=== PATIENT | male | born 1955 | race Caucasian/White ===

== ENCOUNTER → 2016-06-01 | Outpatient (CLI) | payer MEDICARE, MEDICAID | LOC: WI 12:32 | PROVIDERS: ATTEND Physician Assistant | DX: R22.9 Localized swelling, mass and lump, unspecified (principal) | CPT/HCPCS: 76642 ==

== ENCOUNTER 2018-07-31 22:30 | Observation (INO) | payer MEDICARE, MEDICAID ==
[2018-07-31] MEDS ORDERED: PREDNISONE 20 MG TABLET PO ONE (22:42)
[2018-07-31] MEDS ORDERED: IPRATROPIUM/ALBUTEROL 0.5-2.5 MG/3 ML AMPUL NEB ONE (22:42)
--- NOTE | 2018-07-31 22:46 | ER Document Report ---
ED General - General Chief Complaint: Shortness Of Breath Stated Complaint: SHORTNESS OF BREATH Time Seen by Provider: 07/31/18 22:42 Primary Care Provider: NABEEL WHATLEY PA-C [PHYSICIAN ASSISTANT BOILER OPERATOR] - Follow up as needed Notes: Patient is a pleasant 63-year-old male with a history of COPD who continues to smoke presents with complaint of difficulty breathing. He says breathing has been worsening over last several days and he ran out of his inhaler 2 days ago and became much worse tonight. No fevers. No vomiting. No diarrhea. No chest pain. Patient received a DuoNeb treatments and Solu-Medrol in the ambulance and says he as if he is improving already. He says he still has some cough and wheezing but is no longer working hard to breathe. He denies any chest pain. No other complaints at this time. TRAVEL OUTSIDE OF THE [place] IN LAST 30 DAYS: No - Related Data Allergies/Adverse Reactions: No Known Allergies Allergy (Verified 07/31/18 22:41) Past Medical History - Social History Smoking Status: Current Every Day Smoker Frequency of alcohol use: None Drug Abuse: None Family History: Reviewed & Not Pertinent Pulmonary Medical History: Reports: Hx Asthma, Hx COPD Musculoskeletal Medical History: Reports Hx Arthritis Past Surgical History: Reports: Hx Tonsillectomy - Immunizations Hx Diphtheria, Pertussis, Tetanus Vaccination: Yes Review of Systems - Review of Systems Notes: My Normal Review Basic REVIEW OF SYSTEMS: CONSTITUTIONAL : Denies fever, chills, or sweats. Denies recent illness. EENT: Denies eye, ear, throat, or mouth pain or symptoms. Denies nasal or sinus congestion. CARDIOVASCULAR: Denies chest pain. RESPIRATORY: Wheezing and coughing. Difficulty breathing. GASTROINTESTINAL: Denies abdominal pain. Denies nausea, vomiting. MUSCULOSKELETAL: Denies neck or back pain or joint pain or swelling. SKIN: Denies rash or skin lesions. NEUROLOGICAL: Denies altered mental status or loss of consciousness. ALL OTHER SYSTEMS REVIEWED AND NEGATIVE. Physical Exam - Vital signs Vitals: Temp Resp BP Pulse Ox 96 F L 20 143/71 H 90 L 07/31/18 22:40 07/31/18 22:40 07/31/18 22:40 07/31/18 22:40 - Notes Notes: General Appearance: Well nourished, alert, cooperative, no acute distress, no obvious discomfort. Current dry cough during exam. Vitals: reviewed, See vital signs table. Eyes: PERRL, EOMI, Conjuctiva clear Mouth: No decreasd moisture Lungs: Some scattered wheezing, No rales, No rhonci, No accessory muscle use, fair air exchange bilaterally. Heart: Normal rate, Regular rythm, No murmur, no rub Abdomen: Normal BS, soft, No rigidity, No abdominal tenderness, No guarding, no rebound, no abdominal masses, no organomegaly Extremities:good pulses in all extremities, no edema. Skin: warm, dry, appropriate color, no rash Neuro: speech clear, oriented x 3, normal affect, responds appropriately to questions. Course - Re-evaluation Re-evalutation: 08/01/18 00:47 Patient continues to feel improved. His oxygenation is now at 90% with him off oxygen at rest. I will have him ambulate with a portable pulse ox off oxygen and see how he does. 08/01/18 01:07 We did ambulate him. He immediately became very short of breath and start becoming tachypneic. He had some accessory muscle use. Therefore placed him back on oxygen and placed him back in the stretcher. Give him another breathing treatment. Due to him becoming very short of breath even with small amount of ambulation and having recurrent wheezing episodes appropriate to admit him for observation. I did speak with the hospitalist, Dr. Faulkner, who agrees to evaluate the patient for admission. Dictation of this chart was performed using voice recognition software; therefore, there may be some unintended grammatical errors. - Vital Signs Vital signs: Temp Pulse Resp BP Pulse Ox 96 F L 18 124/65 91 L 07/31/18 22:40 08/01/18 00:01 08/01/18 00:01 08/01/18 00:01 - Laboratory Result Diagrams: 07/31/18 23:53 07/31/18 23:53 Laboratory results interpreted by me: 07/31/18 07/31/18 23:53 23:53 WBC 12.7 H RBC 4.30 L MCV 98 H Seg Neutrophils % 87.6 H Lymphocytes % 8.2 L Absolute Neutrophils 11.1 H Potassium 3.4 L Discharge - Discharge Clinical Impression: COPD with exacerbation Condition: Stable Disposition: ADMITTED OBSERVATION Admitting Provider: Kaushik (Hospitalist) Unit Admitted: Telemetry Referrals: NABEEL WHATLEY PA-C [PHYSICIAN ASSISTANT BOILER OPERATOR] - Follow up as needed
--- NOTE | 2018-07-31 23:10 | RADIOLOGY REPORT (SQ) ---
EXAM DESCRIPTION: XR CHEST 1 VIEW COMPLETED DATE/TME: 07/31/2018 22:43 CLINICAL HISTORY: 63 years, Male, cough wheezing COMPARISON: 07/22/2015 chest x-ray NUMBER OF VIEWS: 1 TECHNIQUE: Portable chest LIMITATIONS: None. FINDINGS: Heart size is normal. Lungs are hyperinflated but clear. No pneumothorax IMPRESSION: Underlying hyperinflation. Lungs are clear copyright 2010 [employer]- All Rights Reserved
[2018-07-31] MEDS: MAGNESIUM SULFATE/D5W 1 GM/100 ML RTUPB IV SCH (23:55)
[2018-08-01 00:11] LABS: ABSOLUTE BASOPHILS # (AUTO) 0.1 10^3/uL (0.0-0.2); ABSOLUTE EOSINOPHILS # (AUTO) 0.1 10^3/uL (0.0-0.6); ABSOLUTE MONOCYTES (AUTO) 0.4 10^3/uL (0.1-1.4); ABSOLUTE NEUT (AUTO) 11.1 10^3/uL (1.7-8.2); BASOPHILS % (AUTO) 0.4 % (0-2); EOSINOPHILS % (AUTO) 0.5 % (0-6); LYMPHOCYTES % (AUTO) 8.2 % (13-45); MEAN CORPUSCULAR HEMOGLOBIN 32.6 pg (27.0-33.4); MEAN CORPUSCULAR HGB CONC 33.4 g/dL (32.0-36.0); MEAN CORPUSCULAR VOLUME 98 fl (80-97); MONOCYTES % (AUTO) 3.3 % (3-13); PLATELET COUNT 218 10^3/uL (150-450); RED CELL DISTRIBUTION WIDTH 13.3 % (11.5-14.0); SEGMENTED NEUTROPHILS % (AUTO) 87.6 % (42-78); TOTAL CELLS COUNTED % (AUTO) 100 %; WHITE BLOOD COUNT 12.7 10^3/uL (4.0-10.5)
[2018-08-01 00:26] LABS: VENOUS BLOOD HCO3 30.6 mmol/L (20-32); VENOUS BLOOD PH 7.42 (7.30-7.42)
[2018-08-01] MEDS: MAGNESIUM SULFATE/D5W 1 GM/100 ML RTUPB IV SCH (00:26)
[2018-08-01 00:30] LABS: ANION GAP 9 (5-19); BLOOD UREA NITROGEN 9 mg/dL (7-20); CALCIUM 9.1 mg/dL (8.4-10.2); CARBON DIOXIDE 30 mmol/L (22-30); CHLORIDE 101 mmol/L (98-107); GLUCOSE 102 mg/dL (75-110); POTASSIUM 3.4 mmol/L (3.6-5.0); SODIUM 139.6 mmol/L (137-145)
[2018-08-01] MEDS ORDERED: ALBUTEROL SULFATE 0.083% NEB 2.5 MG/3 ML AMPUL NEB ONE (00:57)
[2018-08-01] MEDS ORDERED: MAGNESIUM HYDROXIDE SUSP 30 ML UDCUP PO PRN (01:39)
[2018-08-01] MEDS ORDERED: LEVALBUTEROL HCL NEB 0.63 MG/3 ML AMPUL NEB PRN (01:39)
[2018-08-01] MEDS ORDERED: ONDANSETRON HCL INJ/PF 4 MG/2 ML SDV IV PRN (01:39)
[2018-08-01] MEDS ORDERED: MAG HYDROX/AL HYDROX/SIMETH SUSP 30 ML UDCUP PO PRN (01:39)
[2018-08-01] MEDS ORDERED: ZOLPIDEM TARTRATE 5 MG TABLET PO PRN (01:39)
[2018-08-01] MEDS ORDERED: NICOTINE 21 MG/24 HR PATCH.TD24 TD PRN (01:45)
[2018-08-01] MEDS ORDERED: ACETAMINOPHEN 325 MG TABLET PO PRN (01:45)
[2018-08-01] MEDS ORDERED: MORPHINE SULFATE 10 MG/ML INJ IV PRN (01:45)
[2018-08-01] MEDS ORDERED: METHYLPREDNISOLONE INJ 125 MG/2 ML SDV IV ONE (03:00)
[2018-08-01] MEDS ORDERED: SUMATRIPTAN SUCCINATE INJ/PF 6 MG/0.5 ML SDV SUBCUT PRN (03:59)
--- NOTE | 2018-08-01 04:10 | PDOC H&P ---
History of Present Illness Admission Date/PCP: 08/01/2018 MINA BARRON MD Patient complains of: Dyspnea History of Present Illness: ALONZO CHAN is a 63 year old male who presented to the emergency room with a four-day history of dyspnea. He admits a 4-day history of progressively w orsening dyspnea which he was treating at home with an inhaler but ran out of that medication 2 days ago. His dyspnea persisted and continued to get gradually worse until the last 6 hours prior to his emergency room presentation when it suddenly became very severe and he was physically struggling to get each breath. He admits his dyspnea was accompanied by a nonproductive cough but denies all other associated or accompanying symptoms. He admits similar symptoms in the past, due to his COPD, but never quite this severe. He has not identified any aggravating or ameliorating factors for his dyspnea, but admits that he continues to smoke. He summoned EMS and received DuoNeb treatments and Solu-Medrol during his transport to the hospital. He demonstrated an excellent response to his EMS treatment and he was continued on nebulizers and steroids in the emergency room. He was noted to be hypoxic and remains so requiring supplemental oxygen to engage in any activity due to oxygen desaturation with even light activity. Patient was subsequently admitted to observation status for further treatment and appropriate ongoing evaluation. Past Medical History Cardiac Medical History: Denies: Atrial Fibrillation, Congestive Heart Failure, Coronary Artery Disease, DVT, Myocardial Infarction, Hyperlipidema, Hypertension, Pulmonary Embolism Pulmonary Medical History: Reports: Asthma, Bronchitis, Chronic Obstructive Pulmonary Disease (COPD) EENT Medical History: Denies: Cataracts, Ears - Hearing aids Neurological Medical History: Reports: Migraine Denies: Hemorrhagic CVA, Ischemic CVA, Seizures Endocrine Medical History: Denies: Diabetes Mellitus Type 1, Diabetes Mellitus Type 2, Hyperthyroidism, Hypothyroidism, Obesity Renal/ Medical History: Denies: Chronic Kidney Disease, Nephrolithiasis Malignancy Medical History: Reports: None GI Medical History: Denies: Cirrhosis, Hepatitis Musculoskeltal Medical History: Reports: Arthritis Denies: Gout Skin Medical History: Denies: Eczema, Psoriasis Psychiatric Medical History: Reports: Alcohol Dependency, Tobacco Dependency Denies: Substance Abuse Traumatic Medical History: Reports: None Hematology: Denies: Anemia, Bleeding Tendencies Infectious Medical History: Reports: None Past Surgical History Past Surgical History: Reports: Tonsillectomy Social History Information Source: Patient Lives with: Spouse/Significant other Smoking Status: Current Every Day Smoker Frequency of Alcohol Use: None Hx Recreational Drug Use: No Drugs: None Hx Prescription Drug Abuse: No Past Social History Note: Remote history of chronic alcoholism. Patient has been sober for several years. - Advance Directive Resuscitation Status: Full Code Surrogate healthcare decision maker:: Atul Rao Family History Family History: CAD, COPD, DM, Hypertension. denies: Malignancy Parental Family History Reviewed: Yes Children Family History Reviewed: No Sibling(s) Family History Reviewed.: Yes Medication/Allergy Home Medications: Methocarbamol [Robaxin 500 mg Tablet] 500 mg PO BID #20 tablet 05/29/15 Oxycodone HCl 5 mg PO Q6HP PRN #25 tablet 05/29/15 Oxycodone HCl/Acetaminophen [Percocet 2.5-325 Mg Tablet] 1 each PO Q12 #14 tablet 07/22/15 Allergies/Adverse Reactions: No Known Allergies Allergy (Verified 07/31/18 22:41) Review of Systems Constitutional: ABSENT: chills, fever(s) Eyes: ABSENT: visual disturbances, other - Eye pain Ears: ABSENT: hearing changes, other - Ear pain Nose, Mouth, and Throat: ABSENT: mouth pain, sore throat Cardiovascular: PRESENT: as per HPI, dyspnea on exertion. ABSENT: chest pain, edema, orthropnea, palpitations Respiratory: PRESENT: as per HPI, cough, dyspnea. ABSENT: hemoptysis, sputum Gastrointestinal: ABSENT: abdominal pain, constipation, diarrhea, nausea, vomiting Genitourinary: ABSENT: dysuria, hematuria Musculoskeletal: ABSENT: back pain, joint swelling, muscle weakness Integumentary: ABSENT: pruritus, rash Neurological: ABSENT: confusion, convulsions, focal weakness, memory loss, syncope Psychiatric: ABSENT: anxiety, depression Endocrine: ABSENT: cold intolerance, heat intolerance Hematologic/Lymphatic: ABSENT: easy bleeding, easy bruising Physical Exam Vital Signs: Temp Pulse Resp BP Pulse Ox 96 F L 18 124/65 91 L 07/31/18 22:40 08/01/18 00:01 08/01/18 00:01 08/01/18 00:01 Intake & Output 07/30/18 07/31/18 08/01/18 23:59 23:59 23:59 Intake Total 52 Balance 52 Weight 63.503 kg General appearance: PRESENT: cooperative, mild distress - Secondary to dyspnea, well-developed Head exam: PRESENT: atraumatic, normocephalic Eye exam: ABSENT: conjunctival injection, nystagmus, scleral icterus Ear exam: PRESENT: normal external ear exam. ABSENT: bleeding, drainage Mouth exam: PRESENT: dry mucosa, neck supple Neck exam: ABSENT: JVD, thyromegaly, tracheal deviation Respiratory exam: PRESENT: accessory muscle use - Mild accessory muscle use on exam, decreased breath sounds - Minimally decreased breath sounds throughout all kelly consistent with mild to moderate COPD, prolonged expiratory phas - Mildly prolonged expiratory phase present in all kelly, retraction - Mild bilateral supraclavicular and subcostal retractions on exam, symmetrical, wheezes - Expiratory wheezes present in all kelly. ABSENT: rales, rhonchi, stridor Cardiovascular exam: PRESENT: RRR. ABSENT: clicks, gallop, rubs Pulses: PRESENT: normal radial pulses, normal dorsalis pedis pul Vascular exam: PRESENT: normal capillary refill. ABSENT: pallor GI/Abdominal exam: PRESENT: normal bowel sounds, soft Rectal exam: PRESENT: deferred Extremities exam: ABSENT: joint swelling, pedal edema Musculoskeletal exam: PRESENT: full ROM, normal inspection Neurological exam: PRESENT: alert, oriented to person, oriented to place, oriented to time, oriented to situation, CN II-XII grossly intact. ABSENT: motor sensory deficit Psychiatric exam: PRESENT: appropriate affect, normal mood Skin exam: PRESENT: dry, intact, warm. ABSENT: jaundice, rash, urticaria Results Laboratory Results: 07/31/18 23:53 07/31/18 23:53 07/31/18 07/31/18 07/31/18 23:53 23:53 23:53 WBC 12.7 H RBC 4.30 L Hgb 14.0 Hct 42.0 MCV 98 H MCH 32.6 MCHC 33.4 RDW 13.3 Plt Count 218 Seg Neutrophils % 87.6 H Lymphocytes % 8.2 L Monocytes % 3.3 Eosinophils % 0.5 Basophils % 0.4 Absolute Neutrophils 11.1 H Absolute Lymphocytes 1.0 Absolute Monocytes 0.4 Absolute Eosinophils 0.1 Absolute Basophils 0.1 VBG pH 7.42 VBG pCO2 48.0 VBG HCO3 30.6 VBG Base Excess 5.0 Sodium 139.6 Potassium 3.4 L Chloride 101 Carbon Dioxide 30 Anion Gap 9 BUN 9 Creatinine 0.81 Est GFR ( Amer) > 60 Est GFR (Non-Af Amer) > 60 Glucose 102 Calcium 9.1 Impressions: Chest X-Ray 07/31/18 22:43 IMPRESSION: Underlying hyperinflation. Lungs are clear copyright 2010 [employer]- All Rights Reserved Assessment and Plan - Diagnosis (1) Acute respiratory failure with hypoxia Is this a current diagnosis for this admission?: Yes Plan: Patient's acute respiratory failure will be treated with supplemental oxygen and noninvasive pressure support devices as needed. His O2 sat will be monitored continuously during his course of observation. (2) Acute exacerbation of COPD with asthma Is this a current diagnosis for this admission?: Yes Plan: Patient be treated with an aggressive pulmonary toilet utilizing nebulized Xopenex, Pulmicort and Atrovent. He will also receive IV Solu-Medrol and supp lemental oxygen as required. Routine morning CBCs, metabolic profiles and magnesium levels will be obtained as part of monitoring his response to therapy and avoiding potential complications of therapy. Patient will require nebulizer therapy and inhaler therapy at home post discharge. Discharge planning will be notified. (3) Tobacco use disorder, severe, dependence Is this a current diagnosis for this admission?: Yes Plan: Smoking cessation is advised and counseled briefly. A nicotine replacement patch is available for the patient if he desires to use it. (4) Leukocytosis Qualifiers: Leukocytosis type: unspecified Qualified Code(s): D72.829 - Elevated white blood cell count, unspecified Is this a current diagnosis for this admission?: Yes Plan: The patient's leukocytosis will be monitored with daily morning lab CBCs during his course of observation. The patient's leukocytosis is most likely related to the acute stress of his disease and the use of intravenous steroids. (5) Hypokalemia Is this a current diagnosis for this admission?: Yes Plan: Patient potassium will be monitored with daily morning lab metabolic profiles and magnesium levels. Patient's potassium is most likely decreased due to extensive use of albuterol nebulizers provided during EMS transit. Potassium supplementation/repletion will be administered as needed. (6) Chronic arthritis Is this a current diagnosis for this admission?: Yes Plan: Patient has chronic arthritis this will be addressed during his hospital observation course utilizing morphine sulfate 3 to 7.5 mg IV every 2 hours as needed per sliding scale. (7) Migraine headache Qualifiers: Migraine type: unspecified Status migrainosus presence: without status migrainosus Intractability: not intractable Qualified Code(s): G43.909 - Migraine, unspecified, not intractable, without status migrainosus Is this a current diagnosis for this admission?: Yes Plan: Patient has a history of migraine headaches and uses sumatriptan for treatment. He had taken tablets in the past but was recently started on sumatriptan injection therapy with good success. His sumatriptan will be made available to him 6 mg subcu every 12 hours as needed migraine headache. - Time Time Spent with patient: 25-34 minutes Smoking Cessation Education: 3 to 10 minutes Anticipated discharge: Home Within: within 36 hours - Inpatient Certification Based on my medical assessment, after consideration of the patient's comorbidities, presenting symptoms, or acuity I expect that the services needed warrant INPATIENT care.: No I certify that my determination is in accordance with my understanding of Medicare's requirements for reasonable and necessary INPATIENT services [42 CFR 412.3e].: No Medical Necessity: Need Close Monitoring Due to Risk of Patient Decompensation, Need for Nebulizer Therapy and Monitoring of Response, Risk of Complication if Not Cared For in Hospital
[2018-08-01 06:43] LABS: HEMATOCRIT 43.6 % (37.9-51.0); HEMOGLOBIN 14.6 g/dL (13.5-17.0); MEAN CORPUSCULAR HEMOGLOBIN 32.7 pg (27.0-33.4); MEAN CORPUSCULAR HGB CONC 33.5 g/dL (32.0-36.0); MEAN CORPUSCULAR VOLUME 98 fl (80-97); PLATELET COUNT 204 10^3/uL (150-450); RED BLOOD COUNT 4.48 10^6/uL (4.35-5.55); RED CELL DISTRIBUTION WIDTH 13.1 % (11.5-14.0); WHITE BLOOD COUNT 12.8 10^3/uL (4.0-10.5)
[2018-08-01] MEDS: HEPARIN SOD (PORCINE) 5,000 UNIT/ML 1 ML SYRINGE SUBCUT SCH ×3 (07:01→21:33)
[2018-08-01 07:11] LABS: ANION GAP 11 (5-19); BLOOD UREA NITROGEN 11 mg/dL (7-20); CALCIUM 9.5 mg/dL (8.4-10.2); CARBON DIOXIDE 30 mmol/L (22-30); CHLORIDE 102 mmol/L (98-107); GLUCOSE 129 mg/dL (75-110)
[2018-08-01 07:12] LABS: VENOUS BLOOD BASE EXCESS 6.6 mmol/L; VENOUS BLOOD HCO3 32.2 mmol/L (20-32); VENOUS BLOOD PCO2 48.9 mmHg (35-63); VENOUS BLOOD PH 7.44 (7.30-7.42)
[2018-08-01] MEDS: BUDESONIDE NEB 0.5 MG/2 ML AMPUL NEB SCH ×2 (07:59→20:37)
[2018-08-01] MEDS: LEVALBUTEROL HCL NEB 1.25 MG/3 ML AMPUL NEB SCH ×2 (07:59→16:13)
[2018-08-01] MEDS: IPRATROPIUM BROMIDE 0.02% NEB 0.5 MG/2.5 ML AMPUL NEB SCH ×2 (07:59→16:13)
[2018-08-01] MEDS: FAMOTIDINE 20 MG TABLET PO SCH ×2 (09:34→21:34)
[2018-08-01] MEDS: DOCUSATE SODIUM 100 MG CAPSULE PO SCH ×2 (09:34→18:07)
[2018-08-01] MEDS: METHYLPREDNISOLONE INJ 40 MG/1 ML SDV IV SCH ×3 (09:35→18:07)
--- NOTE | 2018-08-01 16:06 | Progress Note ---
Provider Note Provider Note: This is 63 years old male patient was past medical history of COPD and everyday smoker presented with chief complaint of dyspnea. Patient has been as admitted as acute of acute respiratory failure with hypoxemia, COPD exacerbation and tobacco disorder. Patient has been on supplemental oxygen, bronchodilators and Solu-Medrol. Accepted this patient and his primary attending.
[2018-08-02] MEDS: LEVALBUTEROL HCL NEB 1.25 MG/3 ML AMPUL NEB SCH ×4 (00:42→19:43)
[2018-08-02] MEDS: IPRATROPIUM BROMIDE 0.02% NEB 0.5 MG/2.5 ML AMPUL NEB SCH ×4 (00:42→19:43)
[2018-08-02 04:41] LABS: VENOUS BLOOD BASE EXCESS 5.2 mmol/L; VENOUS BLOOD HCO3 30.9 mmol/L (20-32); VENOUS BLOOD PCO2 48.9 mmHg (35-63); VENOUS BLOOD PH 7.42 (7.30-7.42)
[2018-08-02 04:47] LABS: HEMATOCRIT 40.7 % (37.9-51.0); HEMOGLOBIN 13.5 g/dL (13.5-17.0); MEAN CORPUSCULAR HEMOGLOBIN 32.8 pg (27.0-33.4); MEAN CORPUSCULAR HGB CONC 33.2 g/dL (32.0-36.0); MEAN CORPUSCULAR VOLUME 99 fl (80-97); PLATELET COUNT 203 10^3/uL (150-450); RED BLOOD COUNT 4.13 10^6/uL (4.35-5.55)
[2018-08-02 05:00] LABS: ANION GAP 7 (5-19); BLOOD UREA NITROGEN 19 mg/dL (7-20); CALCIUM 9.4 mg/dL (8.4-10.2); CARBON DIOXIDE 30 mmol/L (22-30); CHLORIDE 103 mmol/L (98-107); CHOLESTEROL 154.87 mg/dL (0-200); GLUCOSE 134 mg/dL (75-110); POTASSIUM 4.7 mmol/L (3.6-5.0); SODIUM 139.7 mmol/L (137-145); TRIGLYCERIDES 87 mg/dL (<150)
[2018-08-02 05:11] LABS: DIRECT LDL 80 mg/dL (<100)
[2018-08-02] MEDS: HEPARIN SOD (PORCINE) 5,000 UNIT/ML 1 ML SYRINGE SUBCUT SCH ×3 (05:15→21:50)
[2018-08-02 05:19] LABS: WHITE BLOOD COUNT 29.1 10^3/uL (4.0-10.5)
[2018-08-02] MEDS: BUDESONIDE NEB 0.5 MG/2 ML AMPUL NEB SCH ×2 (08:19→19:43)
[2018-08-02] MEDS: FAMOTIDINE 20 MG TABLET PO SCH ×2 (09:49→21:50)
[2018-08-02] MEDS: DOCUSATE SODIUM 100 MG CAPSULE PO SCH ×2 (09:49→17:56)
[2018-08-02] MEDS ORDERED: MORPHINE SULFATE 10 MG/ML INJ IV PRN ×3 (10:12)
[2018-08-02] MEDS: METHYLPREDNISOLONE INJ 40 MG/1 ML SDV IV SCH ×3 (12:49→23:14)
--- NOTE | 2018-08-02 15:08 | PDOC PROGRESS REPORT ---
Subjective Progress Note for:: 08/02/18 Subjective:: This is 63 years old male patient was past medical history of COPD and everyday smoker presented with chief complaint of dyspnea. Patient has been as admitted as acute of acute respiratory failure with hypoxemia, COPD exacerbation and tobacco disorder. Patient has been on supplemental oxygen, bronchodilators and Solu-Medrol. This morning patient has an episode of hypoxia while he is getting oxygen. Reason For Visit: ACUTE EXACERBATION COPD Physical Exam Vital Signs: Temp Pulse Resp BP Pulse Ox 97.7 F 73 18 136/69 H 95 08/01/18 23:17 08/02/18 14:00 08/02/18 14:00 08/01/18 23:17 08/02/18 14:00 Intake & Output 08/01/18 08/02/18 08/03/18 06:59 06:59 06:59 Intake Total 152 3057 500 Output Total 450 Balance 152 3057 50 Weight 65.6 kg 67.5 kg General appearance: PRESENT: mild distress Head exam: PRESENT: atraumatic, normocephalic Eye exam: PRESENT: conjunctiva pink Neck exam: ABSENT: carotid bruit, JVD, lymphadenopathy, thyromegaly Respiratory exam: PRESENT: clear to auscultation jessica, wheezes. ABSENT: rales, rhonchi Cardiovascular exam: PRESENT: RRR. ABSENT: diastolic murmur, rubs, systolic murmur GI/Abdominal exam: PRESENT: normal bowel sounds, soft. ABSENT: distended, guarding, mass, organolmegaly, rebound, tenderness Neurological exam: PRESENT: alert, awake, oriented to time, oriented to situatio n Results Laboratory Results: 08/02/18 04:20 08/02/18 04:20 08/02/18 08/02/18 08/02/18 04:20 04:20 04:20 WBC 29.1 H D RBC 4.13 L Hgb 13.5 Hct 40.7 MCV 99 H MCH 32.8 MCHC 33.2 RDW 13.0 Plt Count 203 VBG pH VBG pCO2 VBG HCO3 VBG Base Excess Sodium 139.7 Potassium 4.7 Chloride 103 Carbon Dioxide 30 Anion Gap 7 BUN 19 Creatinine 0.85 Est GFR ( Amer) > 60 Est GFR (Non-Af Amer) > 60 Glucose 134 H Calcium 9.4 Magnesium 2.4 H Triglycerides 87 Cholesterol 154.87 LDL Cholesterol Direct 80 VLDL Cholesterol 17.0 HDL Cholesterol 77 TSH 0.12 L 08/02/18 04:20 WBC RBC Hgb Hct MCV MCH MCHC RDW Plt Count VBG pH 7.42 VBG pCO2 48.9 VBG HCO3 30.9 VBG Base Excess 5.2 Sodium Potassium Chloride Carbon Dioxide Anion Gap BUN Creatinine Est GFR ( Amer) Est GFR (Non-Af Amer) Glucose Calcium Magnesium Triglycerides Cholesterol LDL Cholesterol Direct VLDL Cholesterol HDL Cholesterol TSH Impressions: Chest X-Ray 07/31/18 22:43 IMPRESSION: Underlying hyperinflation. Lungs are clear copyright 2011 [employer]- All Rights Reserved Assessment and Plan - Diagnosis (1) Acute respiratory failure with hypoxia Is this a current diagnosis for this admission?: Yes Plan: Relatively improving. (2) COPD exacerbation Is this a current diagnosis for this admission?: Yes Plan: Continue supplemental oxygen, bronchodilators and Solu-Medrol. (3) Tobacco dependence Is this a current diagnosis for this admission?: Yes
[2018-08-03] MEDS: IPRATROPIUM BROMIDE 0.02% NEB 0.5 MG/2.5 ML AMPUL NEB SCH ×3 (01:54→13:49)
[2018-08-03] MEDS: LEVALBUTEROL HCL NEB 1.25 MG/3 ML AMPUL NEB SCH ×3 (01:54→13:49)
[2018-08-03] MEDS: HEPARIN SOD (PORCINE) 5,000 UNIT/ML 1 ML SYRINGE SUBCUT SCH (05:49)
[2018-08-03] MEDS: METHYLPREDNISOLONE INJ 40 MG/1 ML SDV IV SCH ×2 (06:22→14:44)
[2018-08-03] MEDS: BUDESONIDE NEB 0.5 MG/2 ML AMPUL NEB SCH (08:26)
[2018-08-03] MEDS: DOCUSATE SODIUM 100 MG CAPSULE PO SCH (09:40)
[2018-08-03] MEDS: FAMOTIDINE 20 MG TABLET PO SCH (09:40)
[2018-08-03 11:17] LABS: HEMATOCRIT 46.8 % (37.9-51.0); MEAN CORPUSCULAR HEMOGLOBIN 32.5 pg (27.0-33.4); MEAN CORPUSCULAR HGB CONC 33.2 g/dL (32.0-36.0); MEAN CORPUSCULAR VOLUME 98 fl (80-97); PLATELET COUNT 225 10^3/uL (150-450); RED BLOOD COUNT 4.77 10^6/uL (4.35-5.55); RED CELL DISTRIBUTION WIDTH 12.9 % (11.5-14.0); WHITE BLOOD COUNT 25.5 10^3/uL (4.0-10.5)
[2018-08-03 11:32] LABS: ABSOLUTE LYMPHOCYTES# (MANUAL) 0.3 10^3/uL (0.5-4.7); ABSOLUTE MONOCYTES # (MANUAL) 0.3 10^3/uL (0.1-1.4); BASOPHILS % (MANUAL) 0 % (0-2); EOSINOPHILS % (MANUAL) 0 % (0-6); LYMPHOCYTES % (MANUAL) 1 % (13-45); MONOCYTES % (MANUAL) 1 % (3-13); SEGMENTED NEUTROPHILS % (MAN) 98 % (42-78); TOTAL CELLS COUNTED 100
[2018-08-03 11:36] LABS: ANISOCYTOSIS SLIGHT; OVALOCYTES SLIGHT; POLYCHROMASIA SLIGHT
[2018-08-03 11:37] LABS: PLATELET COMMENT ADEQUATE
[2018-08-03 11:47] LABS: HEMOGLOBIN 15.5 g/dL (13.5-17.0)
--- NOTE | 2018-08-03 12:09 | PDOC DISCHARGE SUMMARY ---
General - Admit/Disc Date/PCP Admission Date/Primary Care Provider: 08/01/18 01:20 MINA BARRON MD Discharge Date: 08/03/18 - Discharge Diagnosis (1) Acute respiratory failure with hypoxia Is this a current diagnosis for this admission?: Yes (2) COPD exacerbation Is this a current diagnosis for this admission?: Yes (3) Tobacco dependence Is this a current diagnosis for this admission?: Yes - Additional Information Resuscitation Status: Full Code Home Medications: Albuterol Sulfate [Albuterol Sulfate Hfa] 2 puff IH Q4HP PRN 08/01/18 Albuterol Sulfate [Ventolin 0.083% Neb 2.5 mg/3 mL Ampul] 2.5 mg NEB Q6HP PRN 08/01/18 Budesonide [Pulmicort 90 mcg Flexhaler] 2 puff IH Q12 08/01/18 Duloxetine HCl [Cymbalta 30 mg Capsule.dr] 30 mg PO Q12 08/01/18 Erenumab-Aooe [Aimovig Autoinjector] 70 mg SQ .1ST OF THE MONTH 08/01/18 Oxycodone HCl/Acetaminophen [Percocet 5-325 mg Tablet] 1 tab PO Q6HP PRN 08/01/18 Prednisone [Deltasone 5 mg Tablet] 5 mg PO DAILY 08/01/18 Sumatriptan Succinate [Imitrex 50 mg Tablet] 50 mg PO DAILYP PRN 08/01/18 History of Present Illness History of Present Illness: ALONZO CHAN is a 63 year old male who presented to the emergency room with a four-day history of dyspnea. He admits a 4-day history of progressively worsening dyspnea which he was treating at home with an inhaler but ran out of that medication 2 days ago. His dyspnea persisted and continued to get gradually worse until the last 6 hours prior to his emergency room presentation when it suddenly became very severe and he was physically struggling to get each breath. He admits his dyspnea was accompanied by a nonproductive cough but denies all other associated or accompanying symptoms. He admits similar symptoms in the past, due to his COPD, but never quite this severe. He has not identified any aggravating or ameliorating factors for his dyspnea, but admits that he continues to smoke. He summoned EMS and received DuoNeb treatments and Solu-Medrol during his transport to the hospital. He demonstrated an excellent response to his EMS treatment and he was continued on nebulizers and steroids in the emergency room. He was noted to be hypoxic and remains so requiring supplemental oxygen to engage in any activity due to oxygen desaturation with even light activity. Patient was subsequently admitted to observation status for further treatment and appropriate ongoing evaluation. Hospital Course Hospital Course: This is 63 years old male patient was past medical history of COPD and everyday smoker presented with chief complaint of dyspnea. Patient has been as admitted as acute of acute respiratory failure with hypoxemia, COPD exacerbation and tobacco disorder. Patient has been on supplemental oxygen, bronchodilators and Solu-Medrol. Yesterday patient had an episode of hypoxia while getting oxygen. This morning I reevaluated the patient while he is sitting on bedside. He is awake alert oriented he is not in pain or distress still has occasional bilateral wheezing. He is doing well without oxygen. He is tested for home oxygen but is also saturation is 99% on room air so he does not qualify for home oxygen. His vitals and blood works are unremarkable except for leukocytosis but it is trending down from 29-25 most probably expect explained by steroid. I will send him home with prednisone 40 mg p.o. daily Zithromax 500 mg p.o. daily and rescue inhaler. Patient counseled and encouraged to quit smoking and he voices agreement.. Physical Exam Vital Signs: Temp Pulse Resp BP Pulse Ox 97.6 F 93 24 H 130/71 H 93 08/02/18 23:54 08/03/18 08:26 08/03/18 08:26 08/02/18 23:54 08/03/18 08:26 Intake & Output 08/02/18 08/03/18 08/04/18 06:59 06:59 06:59 Intake Total 3057 1830 Output Total 450 Balance 3057 1380 Weight 67.5 kg 67.5 kg General appearance: PRESENT: no acute distress, well-developed, well-nourished Head exam: PRESENT: atraumatic, normocephalic Eye exam: PRESENT: conjunctiva pink, EOMI, PERRLA. ABSENT: scleral icterus Ear exam: PRESENT: normal external ear exam Mouth exam: PRESENT: moist, tongue midline Neck exam: ABSENT: carotid bruit, JVD, lymphadenopathy, thyromegaly Respiratory exam: PRESENT: crackles, wheezes Cardiovascular exam: PRESENT: RRR. ABSENT: diastolic murmur, rubs, systolic murmur Pulses: PRESENT: normal dorsalis pedis pul Vascular exam: PRESENT: normal capillary refill GI/Abdominal exam: PRESENT: normal bowel sounds, soft. ABSENT: distended, guarding, mass, organolmegaly, rebound, tenderness Rectal exam: PRESENT: deferred Extremities exam: PRESENT: full ROM. ABSENT: calf tenderness, clubbing, pedal edema Neurological exam: PRESENT: alert, awake, oriented to person, oriented to place, oriented to time, oriented to situation, CN II-XII grossly intact. ABSENT: motor sensory deficit Psychiatric exam: PRESENT: appropriate affect, normal mood. ABSENT: homicidal ideation, suicidal ideation Skin exam: PRESENT: dry, intact, warm. ABSENT: cyanosis, rash Results Laboratory Results: 08/03/18 10:48 08/02/18 04:20 08/03/18 08/03/18 08:48 10:48 WBC Cancelled 25.5 H RBC Cancelled 4.77 Hgb Cancelled 15.5 Hct Cancelled 46.8 MCV Cancelled 98 H MCH Cancelled 32.5 MCHC Cancelled 33.2 RDW Cancelled 12.9 Plt Count Cancelled 225 Seg Neutrophils % Cancelled Not Reportable Lymphocytes % Cancelled Not Reportable Monocytes % Cancelled Not Reportable Eosinophils % Cancelled Not Reportable Basophils % Cancelled Not Reportable Absolute Neutrophils Cancelled Not Reportable Absolute Lymphocytes Cancelled Not Reportable Absolute Monocytes Cancelled Not Reportable Absolute Eosinophils Cancelled Not Reportable Absolute Basophils Cancelled Not Reportable Impressions: Chest X-Ray 07/31/18 22:43 IMPRESSION: Underlying hyperinflation. Lungs are clear copyright 2010 [employer]- All Rights Reserved Qualifiers - * PATIENT BEING DISCHARGED WITH ANY OF THE FOLLOWING DIAGNOSIS: No Acute Heart Failure Is this a Heart Failure Patient?: No
[2018-08-03 13:53] VITALS: BP 128/75
== END 2018-08-03 14:54 | disposition home or self-care (01) ==
LOC: ER 22:30 → EH 08-01 01:20 → 4N 08-01 02:36
PROVIDERS: ADMIT Emergency Medicine; ATTEND Emergency Medicine
DX: J96.01 Acute respiratory failure with hypoxia (principal); J44.1 Chronic obstructive pulmonary disease with (acute) exacerbation; E87.6 Hypokalemia; G43.909 Migraine, unspecified, not intractable, without status migrainosus; M19.90 Unspecified osteoarthritis, unspecified site; Z79.899 Other long term (current) drug therapy; F17.200 Nicotine dependence, unspecified, uncomplicated
CPT/HCPCS: 94640 ×5; 99284; 96360; 96361; 36415 ×4; 83735 ×2; 84443; 85025 ×2; 85027 ×2; 80048 ×3; 82803 ×3; 80061; 71045; G0378 ×3; J1644 ×2; A9270 ×8; J2920 ×3; J3475 ×2; J3490 ×8; J7620

== ENCOUNTER 2018-11-22 07:11 | Emergency (ER) | payer MEDICARE, MEDICAID ==
--- NOTE | 2018-11-22 08:14 | RADIOLOGY REPORT (SQ) ---
EXAM DESCRIPTION: CHEST SINGLE VIEW COMPLETED DATE/TIME: 11/22/2018 7:52 am REASON FOR STUDY: sob COMPARISON: 07/31/2018 EXAM PARAMETERS: NUMBER OF VIEWS: One view. TECHNIQUE: Single frontal radiographic view of the chest acquired. RADIATION DOSE: NA LIMITATIONS: None. FINDINGS: LUNGS AND PLEURA: Emphysematous change with hyperinflation flattening of the hemidiaphragm s. No focal consolidation, pleural effusion or pneumothorax. MEDIASTINUM AND HILAR STRUCTURES: No masses. Contour normal. HEART AND VASCULAR STRUCTURES: Normal heart size. Aortic atherosclerosis. BONES: No acute findings. HARDWARE: None in the chest. OTHER: No other significant finding. IMPRESSION: Emphysematous change without evidence of acute cardiopulmonary process. TECHNICAL DOCUMENTATION: JOB ID: [id number] [employer]- All Rights Reserved Reading location - IP/workstation name: [email or web address]
[2018-11-22] MEDS ORDERED: IPRATROPIUM/ALBUTEROL 0.5-2.5 MG/3 ML AMPUL NEB ONE ×2 (08:16→10:49)
[2018-11-22 08:17] LABS: ABSOLUTE BASOPHILS # (AUTO) 0.1 10^3/uL (0.0-0.2); ABSOLUTE EOSINOPHILS # (AUTO) 0.1 10^3/uL (0.0-0.6); ABSOLUTE LYMPHOCYTES (AUTO) 2.4 10^3/uL (0.5-4.7); ABSOLUTE MONOCYTES (AUTO) 0.6 10^3/uL (0.1-1.4); ABSOLUTE NEUT (AUTO) 7.2 10^3/uL (1.7-8.2); BASOPHILS % (AUTO) 0.7 % (0-2); EOSINOPHILS % (AUTO) 1.2 % (0-6); HEMATOCRIT 41.7 % (37.9-51.0); HEMOGLOBIN 14.3 g/dL (13.5-17.0); LYMPHOCYTES % (AUTO) 23.3 % (13-45); MEAN CORPUSCULAR HEMOGLOBIN 32.9 pg (27.0-33.4); MEAN CORPUSCULAR HGB CONC 34.2 g/dL (32.0-36.0); MEAN CORPUSCULAR VOLUME 96 fl (80-97); MONOCYTES % (AUTO) 5.3 % (3-13); PLATELET COUNT 235 10^3/uL (150-450); RED BLOOD COUNT 4.35 10^6/uL (4.35-5.55); RED CELL DISTRIBUTION WIDTH 12.4 % (11.5-14.0); SEGMENTED NEUTROPHILS % (AUTO) 69.5 % (42-78); TOTAL CELLS COUNTED % (AUTO) 100 %; WHITE BLOOD COUNT 10.4 10^3/uL (4.0-10.5)
[2018-11-22 08:44] LABS: ALBUMIN 4.4 g/dL (3.5-5.0); ALKALINE PHOSPHATASE 61 U/L (38-126); ANION GAP 9 (5-19); ASPARTATE AMINO TRANSFERASE 31 U/L (17-59); BILIRUBIN,DIRECT 0.4 mg/dL (0.0-0.4); BILIRUBIN,TOTAL 0.7 mg/dL (0.2-1.3); BLOOD UREA NITROGEN 13 mg/dL (7-20); CALCIUM 9.8 mg/dL (8.4-10.2); CARBON DIOXIDE 28 mmol/L (22-30); CHLORIDE 99 mmol/L (98-107); CREATINE KINASE 157 U/L (55-170); GLUCOSE 88 mg/dL (75-110); POTASSIUM 4.1 mmol/L (3.6-5.0)
[2018-11-22] MEDS: MAGNESIUM SULFATE/D5W 1 GM/100 ML RTUPB IV SCH ×2 (08:50→09:48)
[2018-11-22 08:54] LABS: CREATINE KINASE MB 3.32 ng/mL (<4.55)
[2018-11-22 08:58] LABS: TROPONIN I < 0.012 ng/mL
--- NOTE | 2018-11-22 09:31 | ER Document Report ---
Entered by EBONY LEONARD SCRIBE 11/22/18 0812 Acting as scribe for:MARIA LUZ RESTREPO MD ED Respiratory Problem - General Chief Complaint: Shortness Of Breath Stated Complaint: DIFFICULTY BREATHING Time Seen by Provider: 11/22/18 08:00 Primary Care Provider: MINA BARRON MD [Primary Care Provider] - Follow up as needed Mode of Arrival: Ambulatory Information source: Patient Notes: Patient is a 63-year-old male who presents to the emergency department today with complaints of shortness of breath for the last couple days. Patient states that he has an at home nebulizer with albuterol treatments which has not helped his breathing this time. Patient also has a pro-air inhaler. Patient was given 125 mg of Solu-Medrol and 1 DuoNeb treatment by EMS prior to arrival here. TRAVEL OUTSIDE OF THE [place] IN LAST 30 DAYS: No - Related Data Allergies/Adverse Reactions: No Known Allergies Allergy (Verified 07/31/18 22:41) Past Medical History - General Information source: Patient - Social History Smoking Status: Current Every Day Smoker Chew tobacco use (# tins/day): No Frequency of alcohol use: None Drug Abuse: None Family History: CAD, COPD, DM, Hypertension Patient has suicidal ideation: No Patient has homicidal ideation: No Pulmonary Medical History: Reports: Hx Asthma, Hx Bronchitis, Hx COPD Neurological Medical History: Reports: Hx Migraine Musculoskeletal Medical History: Reports Hx Arthritis Past Surgical History: Reports: Hx Tonsillectomy - Immunizations Hx Diphtheria, Pertussis, Tetanus Vaccination: Yes Review of Systems - Review of Systems Constitutional: No symptoms reported EENT: No symptoms reported Cardiovascular: No symptoms reported Respiratory: See HPI, Cough, Short of breath, Sputum, Wheezing Gastrointestinal: No symptoms reported Genitourinary: No symptoms reported Male Genitourinary: No symptoms reported Musculoskeletal: No symptoms reported Skin: No symptoms reported Hematologic/Lymphatic: No symptoms reported Neurological/Psychological: No symptoms reported -: Yes All other systems reviewed and negative Physical Exam - Vital signs Vitals: Resp Pulse Ox 16 92 11/22/18 07:15 11/22/18 07:15 - Notes Notes: Physical Exam: General: Alert, appears older than stated age. Smells heavily of tobacco. HEENT: Normocephalic. Atraumatic. PERRL. Extraocular movements intact. Oropharynx clear. Neck: Supple. Non-tender. Respiratory: Mild respiratory distress. Wheezing and rhonchi bilaterally. Tachypneic. Cardiovascular: Regular rate and rhythm. Abdominal: Normal Inspection. Non-tender. No distension. Normal Bowel Sounds. Back: No gross abnormalities. Extremities: Moves all four extremities. Upper extremities: Normal inspection. Normal ROM. Lower extremities: Normal inspection. No edema. Normal ROM. Neurological: Normal cognition. AAOx4. Normal speech. Psychological: Normal affect. Normal Mood. Skin: Warm. Dry. Normal color. Course - Re-evaluation Re-evalutation: 11/22/18 10:47 Review of the records and talking with patient, it does not appear that he has ever been put on any anticholinergic type medication such as Atrovent for his nebulizer, Breo or Spiriva. He is not on an inhaled steroid. He has been prescribed prednisone frequently over the last several months. He is also been on Zithromax and doxycycline several times. He does report that his doctor does not give him enough albuterol solution and he runs out, he has asked rib in the past for an additional box on his monthly prescription so he does not run out but they will not provide it. Instead he is forced to come to the emergency room. At this time his wheezes and shortness of breath have improved considerably, he still has diffuse wheezes and rhonchi in his left chest, wheezes in the right chest are almost absent. He is also requesting something for his nerves, he states he has not been able to sleep the past 3 nights. I will give him very small dose of Ativan here, but will not prescribe him with anxiolytics to take at home. That is something for his primary care provider to consider. 11/22/18 12:27 At this time the patient's lungs are mostly clear. He is comfortable. He now tells me that he is completely out of his albuterol solution and inhalers and has nothing at home to treat his wheezing. - Vital Signs Vital signs: Temp Pulse Resp BP Pulse Ox 18 118/79 93 11/22/18 11:01 11/22/18 11:00 11/22/18 11:01 - Laboratory Result Diagrams: 11/22/18 08:03 11/22/18 08:03 Laboratory results interpreted by me: 11/22/18 11/22/18 08:03 09:15 Sodium 135.5 L Urine Blood SMALL H - Diagnostic Test Radiology reviewed: Image reviewed, Reports reviewed - Chest x-ray shows chronic emphysematous changes without acute cardiopulmonary process. - EKG Interpretation by Me EKG shows normal: Sinus rhythm, [place], Intervals, QRS Complexes, ST-T Waves Rate: Normal - 87 Rhythm: NSR [place]/QRS: Right axis deviation Discharge - Discharge Clinical Impression: Acute exacerbation of chronic obstructive pulmonary disease (COPD), Tobacco use disorder, severe, dependence Condition: Stable Disposition: HOME, SELF-CARE Additional Instructions: Chronic Obstructive Lung Disease You have chronic obstructive lung disease (COPD). The symptoms come from emphysema (damage to small airways, with trapping of air in large sacks in the lung) and chronic bronchitis (repeated infection and damage to larger airways). The cause is almost always cigarette smoking, although dust exposure, asthma, and infections contribute. You should avoid fumes, dust, and smoke (especially tobacco smoke). Your condition will flare from time to time. There is no cure, but the symptoms can be treated. Bronchodilators (asthma medicine) are often helpful. Antibiotics help when infection is present. When shortness of breath is severe, we may prescribe cortisone medication. If medicine doesn't help enough, we can arrange for you to have an oxygen tank at home. Notify your doctor at once if sputum becomes thick, foul, or bloody, if you develop a fever or chest pain, or if your shortness of breath worsens. Take medications as prescribed. Start taking the prednisone tomorrow. You were given today's dose here in the emergency room. Drink plenty of fluids. Stop smoking. Do not wait until you have run out of medication before trying to see your doctor. Follow-up with your primary care provider in the next few days if not continuing to improve. RETURN TO THE EMERGENCY ROOM IF ANY NEW OR WORSENING SYMPTOMS. Prescriptions: Ipratropium [place] [Atrovent 0.02% Neb 0.5 mg/2.5 ml Ampul] 0.5 mg NEB Q6 #60 vial.neb Prednisone [Deltasone 10 mg Tablet] 10 mg PO ASDIR PRN #21 tablet PRN Reason: Albuterol Sulfate [Proair Hfa Inhalation Aerosol 8.5 gm Mdi] 2 puff IH ASDIR PRN #1 mdi PRN Reason: Albuterol Sulfate [Ventolin 0.083% Neb 2.5 mg/3 mL Ampul] 1 vial NEB ASDIR PRN #50 vial PRN Reason: Referrals: [facility] [Provider Group] - Follow up as needed Scribe Attestation: 11/22/18 09:41 I personally performed the services described in the documentation, reviewed and edited the documentation which was dictated to the scribe in my presence, and it accurately records my words and actions. I personally performed the services described in the documentation, reviewed and edited the documentation which was dictated to the scribe in my presence, and it accurately records my words and actions.
[2018-11-22] MEDS ORDERED: ALBUTEROL SULFATE 0.083% NEB 2.5 MG/3 ML AMPUL NEB ONE (09:40)
[2018-11-22 09:43] LABS: APPEARANCE,URINE CLEAR; BILIRUBIN,URINE NEGATIVE (NEGATIVE); COLOR,URINE YELLOW; GLUCOSE, URINE NEGATIVE (NEGATIVE); KETONES,URINE NEGATIVE (NEGATIVE); LEUKOCYTE ESTERASE,URINE NEGATIVE (NEGATIVE); NITRITE,URINE NEGATIVE (NEGATIVE); PROTEIN,URINE NEGATIVE (NEGATIVE); URINE SPECIFIC GRAVITY 1.004; UROBILINOGEN,URINE NEGATIVE mg/dL (<2.0)
[2018-11-22] MEDS ORDERED: PREDNISONE 20 MG TABLET PO ONE (10:49)
[2018-11-22] MEDS ORDERED: BENZONATATE 100 MG CAPSULE PO ONE (10:50)
[2018-11-22] MEDS ORDERED: LORAZEPAM INJ 2 MG/1 ML VIAL IV ONE (10:50)
[2018-11-22 11:55] VITALS: BP 118/79
--- NOTE | 2018-11-22 18:57 | EKG REPORT ---
SEVERITY:- OTHERWISE NORMAL ECG - SINUS RHYTHM BORDERLINE RIGHT AXIS DEVIATION : Confirmed by: Chaparro Alvares MD 22-Nov-2018 18:56:20
== END 2018-11-22 12:56 | disposition home or self-care (01) ==
LOC: ER 07:11
DX: J44.1 Chronic obstructive pulmonary disease with (acute) exacerbation (principal); R05 Cough; R06.2 Wheezing; R06.82 Tachypnea, not elsewhere classified; F17.200 Nicotine dependence, unspecified, uncomplicated
CPT/HCPCS: 93005; 94640 ×2; 99285; 96375; 96365; 96366; 36415; 82553; 82550; 85025; 80053; 81001; 84484; 71045; 93010; A9270 ×4; J2060; J3475; J7512; J7620

== ENCOUNTER 2018-12-25 21:14 | Emergency (ER) | payer MEDICARE, MEDICAID ==
--- NOTE | 2018-12-25 21:44 | ER Document Report ---
ED Medical Screen (RME) - General Chief Complaint: Shortness Of Breath Stated Complaint: RESPIRATORY DISTRESS Time Seen by Provider: 12/25/18 21:42 Primary Care Provider: MINA BARRON MD [Primary Care Provider] - Follow up as needed Notes: 63-year-old male with a history of COPD who continues to smoke that comes by EMS for chief complaint of running out of his albuterol medication and vomiting. He states now he feels fine after receiving 125 mg of Solu-Medrol and a DuoNeb from EMS. He denies fever, cough, chest pain, dizziness, or any current complaints. He denies medical history otherwise. He is not on home oxygen but he states he wishes he was. He is unsure of his baseline oxygen level. TRAVEL OUTSIDE OF THE [place] IN LAST 30 DAYS: No - Related Data Allergies/Adverse Reactions: No Known Allergies Allergy (Verified 12/25/18 21:32) Past Medical History - Past Medical History Cardiac Medical History: Denies: Hx Atrial Fibrillation, Hx Congestive Heart Failure, Hx Coronary Artery Disease, Hx DVT, Hx Heart Attack, Hx Hypercholesterolemia, Hx Hypertension, Hx Pulmonary Embolism Pulmonary Medical History: Reports: Hx Asthma, Hx Bronchitis, Hx COPD Neurological Medical History: Reports: Hx Migraine. Denies: Hx Seizures Endocrine Medical History: Denies: Hx Diabetes Mellitus Type 1, Hx Diabetes Mellitus Type 2, Hx Hyperthyroidism, Hx Hypothyroidism Renal/ Medical History: Denies: Hx Peritoneal Dialysis GI Medical History: Denies: Hx Cirrhosis, Hx Hepatitis Musculoskeltal Medical History: Reports Hx Arthritis, Denies Hx Gout Skin Medical History: Denies Hx Eczema, Denies Hx Psoriasis Infectious Medical History: Denies: Hx Hepatitis Past Surgical History: Reports: Hx Tonsillectomy - Immunizations Hx Diphtheria, Pertussis, Tetanus Vaccination: Yes Physical Exam - Vital signs Vitals: Temp Pulse Resp BP Pulse Ox 98.3 F 98 23 H 146/84 H 92 12/25/18 21:30 12/25/18 21:30 12/25/18 21:30 12/25/18 21:30 12/25/18 21:30 - Respiratory Breath sounds: Decreased air movement - Bilateral decreased breath sounds but no tachypnea, labored breathing, wheezing, or other abnormality is noted Course - Re-evaluation Re-evalutation: Per previous recent records anytime patient is 94% or above he is on oxygen, patient is 92% now, he is talkative, lungs clear, no tachypnea, suspect this is close to his baseline. Performing chest x-ray but patient is not having any other complaints at this time. I have greeted and performed a rapid initial assessment of this patient. A comprehensive ED assessment and evaluation of the patient, analysis of test results and completion of the medical decision making process will be conducted by additional ED providers. - Vital Signs Vital signs: Temp Pulse Resp BP Pulse Ox 98.3 F 98 23 H 146/84 H 92 12/25/18 21:30 12/25/18 21:30 12/25/18 21:30 12/25/18 21:30 12/25/18 21:30 Doctor's Discharge - Discharge Referrals: MINA BARRON MD [Primary Care Provider] - Follow up as needed
--- NOTE | 2018-12-25 22:14 | RADIOLOGY REPORT (SQ) ---
XR CHEST 2 VIEWS EXAM DATE: 12/25/2018 12:00 AM CDT HISTORY: SOB; cough; hx COPD. COMPARISON: 11/22/2018 FINDINGS: The heart size is within normal limits. No consolidation, pleural effusion, or pneumothorax is seen. Emphysematous changes are seen. The bony thorax is intact. IMPRESSION: No evidence of acute cardiopulmonary disease.
[2018-12-25] MEDS ORDERED: ALBUTEROL SULFATE HFA (90 MCG/PUFF) 8 GM MDI (1 MDI/ER DISP) IH ONE (22:54)
--- NOTE | 2018-12-25 22:55 | ER Document Report ---
ED General - General Chief Complaint: Shortness Of Breath Stated Complaint: RESPIRATORY DISTRESS Time Seen by Provider: 12/25/18 21:42 Primary Care Provider: MINA BARRON MD [Primary Care Provider] - Follow up as needed Notes: RME NOTE: 63-year-old male with a history of COPD who continues to smoke that comes by EMS for chief complaint of running out of his albuterol medication and vomiting. He states now he feels fine after receiving 125 mg of Solu-Medrol and a DuoNeb from EMS. He denies fever, cough, chest pain, dizziness, or any current complaints. He denies medical history otherwise. He is not on home oxygen but he states he wishes he was. He is unsure of his baseline oxygen level. MY HPI: Upon my assessment of the patient he states he feels "fine." States he went to his doctor 3 days ago and got prescriptions for albuterol. States when he presented to the pharmacy to get them filled they stated he needed prior authorization. States he was unable to get any of his medications filled which is why he presents to the emergency department for respiratory distress. Patient states he is unsure of his known oxygen saturation but states he has no respiratory distress or chest pain at this time. TRAVEL OUTSIDE OF THE [place] IN LAST 30 DAYS: No - Related Data Allergies/Adverse Reactions: No Known Allergies Allergy (Verified 12/25/18 21:32) Past Medical History - General Information source: Patient - Social History Smoking Status: Current Every Day Smoker Family History: CAD, COPD, DM, Hypertension Patient has suicidal ideation: No Patient has homicidal ideation: No - Past Medical History Cardiac Medical History: Denies: Hx Atrial Fibrillation, Hx Congestive Heart Failure, Hx Coronary [place] Disease, Hx DVT, Hx Heart Attack, Hx Hypercholesterolemia, Hx Hypertension, Hx Pulmonary Embolism Pulmonary Medical History: Reports: Hx Asthma, Hx Bronchitis, Hx COPD Neurological Medical History: Reports: Hx Migraine. Denies: Hx Seizures Endocrine Medical History: Denies: Hx Diabetes Mellitus Type 1, Hx Diabetes Mellitus Type 2, Hx Hyperthyroidism, Hx Hypothyroidism Renal/ Medical History: Denies: Hx Peritoneal Dialysis GI Medical History: Denies: Hx Cirrhosis, Hx Hepatitis Musculoskeletal Medical History: Reports Hx Arthritis, Denies Hx Gout Skin Medical History: Denies Hx Eczema, Denies Hx Psoriasis Infectious Medical History: Denies: Hx Hepatitis Past Surgical History: Reports: Hx Tonsillectomy - Immunizations Hx Diphtheria, Pertussis, Tetanus Vaccination: Yes Review of Systems - Review of Systems Constitutional: denies: Fever EENT: No symptoms reported Cardiovascular: Dyspnea. denies: Chest pain Respiratory: See HPI Gastrointestinal: No symptoms reported Genitourinary: No symptoms reported Male Genitourinary: No symptoms reported Musculoskeletal: No symptoms reported Skin: No symptoms reported Hematologic/Lymphatic: No symptoms reported Neurological/Psychological: No symptoms reported Physical Exam - Vital signs Vitals: Temp Pulse Resp BP Pulse Ox 98.3 F 98 23 H 146/84 H 92 12/25/18 21:30 12/25/18 21:30 12/25/18 21:30 12/25/18 21:30 12/25/18 21:30 - Notes Notes: GENERAL: Alert, interacts well. No acute distress. HEAD: Normocephalic, atraumatic. EYES: Pupils equal, round, and reactive to light. Extraocular movements intact. ENT: Oral mucosa moist, tongue midline. NECK: Full range of motion. Supple. Trachea midline. LUNGS: Clear to auscultation bilaterally, no wheezes, rales, or rhonchi. No respiratory distress. HEART: Regular rate and rhythm. No murmur ABDOMEN: Soft, non-tender. Non-distended. Bowel sounds present in all 4 quadrants. EXTREMITIES: Moves all 4 extremities spontaneously. No edema, normal radial and dorsalis pedis pulses bilaterally. No cyanosis. BACK: no cervical, thoracic, lumbar midline tenderness. No saddle anesthesia, n ormal distal neurovascular exam. NEUROLOGICAL: Alert and oriented x3. Normal speech. cranial nerves II through XII grossly intact PSYCH: Normal affect, normal mood. SKIN: Warm, dry, normal turgor. No rashes or lesions noted. Course - Re-evaluation Re-evalutation: 12/25/18 22:52 Upon my assessment patient is speaking in full sentences appears in no respiratory distress. Evaluation of his lung sounds clear and equal in all kelly. Patient voices concern that he is not going to be able to get his medications filled. I discussed giving him an albuterol inhaler in the emergency department as well as giving him good Rx prescriptions cards. Discussed following up with primary care provider for continued evaluation. Patient stable for discharge. Chest X-Ray 12/25/18 00:00 IMPRESSION: No evidence of acute cardiopulmonary disease. - Vital Signs Vital signs: Temp Pulse Resp BP Pulse Ox 98.3 F 98 23 H 146/84 H 92 12/25/18 21:30 12/25/18 21:30 12/25/18 21:30 12/25/18 21:30 12/25/18 21:30 Discharge - Discharge Clinical Impression: COPD exacerbation, Tobacco dependence Condition: Stable Disposition: HOME, SELF-CARE Instructions: Chronic Obstructive Lung Disease ([facility]) Additional Instructions: As we discussed you have been seen and treated in the emergency department for exacerbation of your COPD. Please make sure you are using your albuterol every 4 hours as needed for respiratory distress. Please also make sure you follow-up with primary care provider in the next 24 to 48 hours. Please return to the emergency room for any concerns. Prescriptions: Prednisone [Deltasone 20 mg Tablet] 3 tab PO DAILY 5 Days tablet Albuterol Sulfate [Proair HFA Inhalation Aerosol 8.5 gm MDI] 2 puff IH Q4H PRN #1 mdi PRN Reason: Albuterol Sulfate [Ventolin 0.083% Neb 2.5 mg/3 mL Ampul] 1 vial NEB Q4 #60 vial Forms: Smoking Cessation Education Referrals: MINA BARRON MD [Primary Care Provider] - Follow up as needed
[2018-12-25 23:02] VITALS: BP 125/71
[2018-12-25] MEDS ORDERED: ACETAMINOPHEN 325 MG TABLET PO ONE (23:02)
== END 2018-12-25 23:08 | disposition home or self-care (01) ==
LOC: ER 21:14
DX: J44.1 Chronic obstructive pulmonary disease with (acute) exacerbation (principal); R06.02 Shortness of breath; R11.10 Vomiting, unspecified; R06.00 Dyspnea, unspecified; F17.200 Nicotine dependence, unspecified, uncomplicated
CPT/HCPCS: 71046; A9270; J3490; 99285

== ENCOUNTER 2018-12-26 23:06 | Emergency (ER) | payer MEDICARE, MEDICAID ==
[2018-12-27] MEDS ORDERED: NORMAL SALINE 1000 ML 1,000 ML IV ONE (00:23)
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
--- NOTE | 2018-12-27 01:03 | RADIOLOGY REPORT (SQ) ---
EXAM DESCRIPTION: X-ray single view chest. CLINICAL HISTORY: 63 years Male, shortness of breath COMPARISON: 12/25/2018 at 10:07 PM TECHNIQUE: Single PA view of the chest performed on 12/27/2018 at 1:04 AM FINDINGS: The lungs are hyperinflated and are clear. There is no evidence of a pneumothorax. The cardiac silhouette is normal in size and configuration. The mediastinal contours are normal. No acute osseous abnormality is identified. There is mild degenerative spondylosis of the thoracic spine. No focal soft tissue abnormalities are seen. Lines and tubes: None. IMPRESSION: No evidence of acute intrathoracic disease. There is stable hyperinflation of the lungs.
[2018-12-27 01:04] LABS: HEMATOCRIT 43.7 % (37.9-51.0); MEAN CORPUSCULAR HEMOGLOBIN 33.4 pg (27.0-33.4); MEAN CORPUSCULAR HGB CONC 34.3 g/dL (32.0-36.0); MEAN CORPUSCULAR VOLUME 98 fl (80-97); PLATELET COUNT 303 10^3/uL (150-450); RED BLOOD COUNT 4.49 10^6/uL (4.35-5.55); WHITE BLOOD COUNT 17.6 10^3/uL (4.0-10.5)
[2018-12-27 01:07] LABS: APPEARANCE,URINE CLEAR; BILIRUBIN,URINE NEGATIVE (NEGATIVE); COLOR,URINE STRAW; GLUCOSE, URINE NEGATIVE (NEGATIVE); KETONES,URINE NEGATIVE (NEGATIVE); LEUKOCYTE ESTERASE,URINE NEGATIVE (NEGATIVE); NITRITE,URINE NEGATIVE (NEGATIVE); PROTEIN,URINE NEGATIVE (NEGATIVE); URINE SPECIFIC GRAVITY 1.004; UROBILINOGEN,URINE NEGATIVE mg/dL (<2.0)
[2018-12-27 01:19] LABS: ABSOLUTE LYMPHOCYTES# (MANUAL) 0.9 10^3/uL (0.5-4.7); ABSOLUTE MONOCYTES # (MANUAL) 2.1 10^3/uL (0.1-1.4); BASOPHILS % (MANUAL) 0 % (0-2); EOSINOPHILS % (MANUAL) 0 % (0-6); LYMPHOCYTES % (MANUAL) 2 % (13-45); MONOCYTES % (MANUAL) 12 % (3-13); SEGMENTED NEUTROPHILS % (MAN) 83 % (42-78); TOTAL CELLS COUNTED 100
[2018-12-27 01:20] LABS: PLATELET COMMENT ADEQUATE; SCHISTOCYTES SLIGHT
--- NOTE | 2018-12-27 02:07 | ER Document Report ---
ED Respiratory Problem - General Chief Complaint: Breathing Difficulty Stated Complaint: SHORTNESS OF BREATH Time Seen by Provider: 12/27/18 02:06 Mode of Arrival: Ambulatory Information source: Patient Notes: HISTORY OF PRESENT ILLNESS: Patient is a 63-year-old male with a past medical history of COPD who presents with continued shortness of breath that began several days ago. Patient pre sented to the emergency department 1 day ago for similar symptoms and was discharged home, reports he feels no better. Of note, the patient has been off his medications and is out of his rescue inhaler. Location: Chest Onset: 3 to 4 days ago Alleviation: Albuterol Provocation: Walking Quality: Tightness, wheezing, coughing Radiation: None Severity: At worst, currently mild Timing: Persistent History of CAD: None Associated symptoms: Denies fevers or chills, no chest pain REVIEW OF SYSTEMS: CONSTITUTIONAL : Denies fever or chills, no sweats. Denies recent illness. EENT: Denies eye, ear, throat, or mouth pain or symptoms. Denies nasal or sinus congestion. CARDIOVASCULAR: Denies chest pain. Denies swelling of the legs. RESPIRATORY: Positive for cough but no chest congestion. Positive for shortness of breath and wheezing. GASTROINTESTINAL: Denies abdominal pain. Denies nausea, vomiting, or diarrhea. Denies constipation. GENITOURINARY: Denies difficulty urinating, painful urination, burning, frequency, or blood in urine. MUSCULOSKELETAL: Denies neck or back pain or joint pain or swelling. SKIN: Denies rash or skin lesions. HEMATOLOGIC : Denies easy bruising or bleeding. LYMPHATIC: Denies swollen, enlarged glands. NEUROLOGICAL: Denies altered mental status or loss of consciousness. Denies headache. Denies weakness or paralysis or loss of use of either side. Denies problems with gait or speech. Denies sensory or motor loss. PSYCHIATRIC: Denies anxiety or stress or depression. All other systems reviewed and negative. PHYSICAL EXAMINATION: GENERAL: Well-appearing, well-nourished and in no acute distress. HEAD: Atraumatic, normocephalic. No scalp deformity, depression, or crepitance. EYES: Pupils are 3 mm and equal/round/reactive to light, extraocular movements intact, sclera anicteric, conjunctiva are normal. ENT: Nares patent bilaterally, oropharynx. Moist mucous membranes. No tonsil hypertrophy. NECK: Normal range of motion, supple without lymphadenopathy. LUNGS: Breath sounds distant and diminished bilaterally. Faint bilateral wheezes but no crackles or rhonchi. HEART: Regular rate and rhythm without murmurs, rubs, or gallops. 2+ peripheral pulses. Normal capillary refill. ABDOMEN: Soft, nontender, nondistended. Normoactive bowel sounds. No guarding, no rebound. No masses appreciated. BACK: Normal contour, no midline tenderness. Rectal exam deferred. GENITAL/PELVIC: Deferred. EXTREMITIES: Normal range of motion, no pitting or edema. No cyanosis. NEUROLOGICAL: No focal neurological deficits. Moves all extremities spontane ously and on command. PSYCH: Normal mood, normal affect. No suicidal thoughts/ideations. No homici selma thoughts/ideations. No hallucinations. SKIN: Warm, dry, normal turgor, no rashes or lesions noted. ASSESSMENT AND PLAN: This patient is a 63-year-old male who presents with persistent shortness of breath with wheezing and nonproductive cough. 1. Will obtain labs, chest x-ray, EKG, and cardiac enzymes. 2. Will give DuoNeb nebulizer treatment along with oral azithromycin and steroids. TRAVEL OUTSIDE OF THE [place] IN LAST 30 DAYS: No - HPI Patient complains to provider of: Asthma, COPD Onset: Yesterday Duration: Continuous Quality of pain: No pain Severity: Mild Pain Level: Denies Context: Hx COPD, Smoker Short of Breath: Mild Chest pain/discomfort: Tightness Cough: Nonproductive Sputum amount: None At home treatment: Bronchodilators Associated symptoms: Cough Similar symptoms previously: Yes Recently seen / treated by doctor: Yes - Related Data Allergies/Adverse Reactions: No Known Allergies Allergy (Verified 12/25/18 21:32) Past Medical History - Social History Smoking Status: Current Every Day Smoker Chew tobacco use (# tins/day): No Frequency of alcohol use: None Drug Abuse: None Lives with: Alone Family History: CAD, COPD, DM, Hypertension Patient has suicidal ideation: No Patient has homicidal ideation: No - Past Medical History Cardiac Medical History: Denies: Hx Atrial Fibrillation, Hx Congestive Heart Failure, Hx Coronary Artery Disease, Hx DVT, Hx Heart Attack, Hx Hypercholesterolemia, Hx Hypertension, Hx Pulmonary Embolism Pulmonary Medical History: Reports: Hx Asthma, Hx Bronchitis, Hx COPD EENT Medical History: Reports: None Neurological Medical History: Reports: Hx Migraine. Denies: Hx Seizures Endocrine Medical History: Reports: None. Denies: Hx Diabetes Mellitus Type 1, Hx Diabetes Mellitus Type 2, Hx Hyperthyroidism, Hx Hypothyroidism Renal/ Medical History: Reports: None. Denies: Hx Peritoneal Dialysis Malignancy Medical History: Reports None GI Medical History: Reports: None. Denies: Hx Cirrhosis, Hx Hepatitis Musculoskeletal Medical History: Reports Hx Arthritis, Denies Hx Gout Skin Medical History: Reports None, Denies Hx Eczema, Denies Hx Psoriasis Psychiatric Medical History: Reports: None Traumatic Medical History: Reports: None Infectious Medical History: Reports: None. Denies: Hx Hepatitis Past Surgical History: Reports: Hx Tonsillectomy - Immunizations Hx Diphtheria, Pertussis, Tetanus Vaccination: Yes Review of Systems - Review of Systems Constitutional: No symptoms reported EENT: No symptoms reported Cardiovascular: No symptoms reported Respiratory: See HPI, Cough, Short of breath, Wheezing Gastrointestinal: No symptoms reported Genitourinary: No symptoms reported Male Genitourinary: No symptoms reported Musculoskeletal: No symptoms reported Skin: No symptoms reported Hematologic/Lymphatic: No symptoms reported Neurological/Psychological: No symptoms reported -: Yes All other systems reviewed and negative Physical Exam - Vital signs Vitals: Temp Pulse Resp BP Pulse Ox 97.5 F 86 18 138/80 H 95 12/27/18 00:11 12/27/18 00:11 12/27/18 00:11 12/27/18 00:11 12/27/18 00:11 Interpretation: Normal Course - Re-evaluation Re-evalutation: 12/27/18 05:04 Will discharge the patient home with strict return precautions and follow-up with primary care. All results were explained to and discussed with the patient, and all questions addressed and answered. The patient voices both understanding and agreeing with the plan. - Vital Signs Vital signs: Temp Pulse Resp BP Pulse Ox 97.5 F 86 18 138/80 H 95 12/27/18 00:11 12/27/18 00:11 12/27/18 00:11 12/27/18 00:11 12/27/18 00:11 - Laboratory Result Diagrams: 12/27/18 00:52 12/27/18 00:52 Laboratory results interpreted by me: 12/27/18 12/27/18 12/27/18 00:38 00:52 00:52 WBC 17.6 H MCV 98 H Seg Neuts % (Manual) 83 H Lymphocytes % (Manual) 2 L Abs Neuts (Manual) 14.6 H Abs Monocytes (Manual) 2.1 H Sodium 135.3 L Chloride 96 L BUN 23 H Creatine Kinase 524 H Urine Blood SMALL H - Diagnostic Test Radiology reviewed: Image reviewed, Reports reviewed - EKG Interpretation by Me EKG shows normal: Sinus rhythm Rate: Normal Rhythm: NSR [place]/QRS: No: Right axis deviation, Left axis deviation, RBBB, LBBB, IVCD, LAHB/LAFB, LPHB/LPFB, Bifasicular block Voltage: No: Increased voltage, Consistant with LVH, Decreased voltage, Throughout, Limb leads P Waves: No: CORNELIO, LAE, Absent, AV Dissociation, Other Heart block present: No: 1st Degree, Mobitz 1, Mobitz 2, CHB (3rd degree block) When compared to previous EKG there are: No significant change Discharge - Discharge Clinical Impression: COPD with exacerbation Acute bronchitis Qualifiers: Bronchitis organism: unspecified organism Qualified Code(s): J20.9 - Acute bronchitis, unspecified Condition: Good Disposition: HOME, SELF-CARE Instructions: Bronchitis ([facility]) Additional Instructions: You have been evaluated in the Emergency Department for difficulty breathing. While here, you had blood work and a chest x-ray and it is now safe to be discharged home. Please follow-up with your primary physician as instructed in one week to be rechecked. Return to the Emergency Department if you experience chest pain, worsening breathing, high fevers, or any other concerning symptoms. Prescriptions: Methylprednisolone [Medrol Dosepack (4 mg/Tab) 21 Tab/Dosepak] 4 mg PO ASDIR PRN #21 tab.ds.pk PRN Reason: Azithromycin [Zithromax 250 mg Tablet] 250 mg PO ASDIR PRN #6 tablet PRN Reason: Print Language: Mexican
[2018-12-27 02:10] LABS: ALBUMIN 4.6 g/dL (3.5-5.0); ALKALINE PHOSPHATASE 44 U/L (38-126); ANION GAP 11 (5-19); ASPARTATE AMINO TRANSFERASE 52 U/L (17-59); BILIRUBIN,DIRECT 0.2 mg/dL (0.0-0.4); BILIRUBIN,TOTAL 0.6 mg/dL (0.2-1.3); BLOOD UREA NITROGEN 23 mg/dL (7-20); CALCIUM 9.4 mg/dL (8.4-10.2); CARBON DIOXIDE 28 mmol/L (22-30); CHLORIDE 96 mmol/L (98-107); CREATINE KINASE 524 U/L (55-170); GLUCOSE 106 mg/dL (75-110); POTASSIUM 3.6 mmol/L (3.6-5.0); TOTAL PROTEIN 7.4 g/dL (6.3-8.2)
[2018-12-27] MEDS ORDERED: DEXAMETHASONE SOD PHOS INJ 10 MG/1 ML VIAL IM ONE (03:19)
[2018-12-27] MEDS ORDERED: AZITHROMYCIN 250 MG TABLET PO ONE (03:19)
[2018-12-27] MEDS ORDERED: IPRATROPIUM/ALBUTEROL 0.5-2.5 MG/3 ML AMPUL NEB ONE (03:19)
[2018-12-27] MEDS ORDERED: ALBUTEROL SULFATE HFA (90 MCG/PUFF) 8 GM MDI (1 MDI/ER DISP) IH PRN (05:06)
[2018-12-27 05:20] VITALS: BP 140/84
--- NOTE | 2018-12-27 20:52 | EKG REPORT ---
SEVERITY:- ABNORMAL ECG - SINUS RHYTHM RAA, CONSIDER BIATRIAL ABNORMALITIES RIGHT AXIS DEVIATION ABNRM R PROG, CONSIDER ASMI OR LEAD PLACEMENT : Confirmed by: Dianne Carlin MD 27-Dec-2018 20:52:23
== END 2018-12-27 05:18 | disposition home or self-care (01) ==
LOC: ER 23:06
DX: J44.1 Chronic obstructive pulmonary disease with (acute) exacerbation (principal); J20.9 Acute bronchitis, unspecified; R06.00 Dyspnea, unspecified; F17.200 Nicotine dependence, unspecified, uncomplicated
CPT/HCPCS: 93005; 36415; 82550; 85025; 80053; 81001; 84484; 71045; 93010; A9270 ×2; J7030; J1100; J3490; J7620

== ENCOUNTER 2019-10-27 10:23 | Emergency (ER) | payer OTHER, MEDICARE ==
[2019-10-27 10:33] VITALS: BP 119/72
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
== END 2019-10-27 12:41 | disposition home or self-care (01) ==
LOC: ER 10:23
DX: S80.211A Abrasion, right knee, initial encounter (principal); S01.411A Laceration without foreign body of right cheek and temporomandibular area, initial encounter; S51.011A Laceration without foreign body of right elbow, initial encounter; M25.561 Pain in right knee; M54.5 Low back pain; M25.512 Pain in left shoulder; V23.4XXA Motorcycle driver injured in collision with car, pick-up truck or van in traffic accident, initial encounter; R21 Rash and other nonspecific skin eruption; F17.200 Nicotine dependence, unspecified, uncomplicated; J44.9 Chronic obstructive pulmonary disease, unspecified
CPT/HCPCS: 99283